=== PATIENT | male | born 1950 | race Caucasian/White ===

== ENCOUNTER 2021-04-27 07:34 | Emergency (ER) | payer MEDICARE, BC ==
[~2021-04-27] VITALS: Ht 177.8 cm; Wt 68.0 kg
[2021-04-27] MEDS ORDERED: CITALOPRAM HBR10 MG PO (07:47)
--- NOTE | 2021-04-28 13:41 | EKG ---
[facility] [address] [facility] [place] [address] Signed Normal sinus rhythm Normal ECG No previous ECGs available Confirmed by JOSE BURTON MD ([id number]) on 04/28/2021 1:41:04 PM Electronically Signed By: JOSE BURTON MD 04/28/21 1341 PATIENT NAME: DMITRY HICKS Electrocardiogram DATE OF : 52 PHYSICIAN: JOSE BURTON MD REPORT #: [id number] REPORT IS CONFIDENTIAL AND NOT TO BE RELEASED WITHOUT AUTHORIZATION
== END 2021-04-27 10:35 | disposition home or self-care (01) ==
LOC: ED 07:34
DX: R55 Syncope and collapse (principal); Z79.899 Other long term (current) drug therapy
CPT/HCPCS: 71045; 80053; 81001; 83735; 84484; 85025; 93005; 93010; 99284-25

== ENCOUNTER 2022-07-03 19:44 | Emergency (ER) | payer MEDICARE, BC ==
[~2022-07-03] VITALS: Ht 177.8 cm; Wt 73.2 kg
[~2022-07-03 19:44] MED LIST: CITALOPRAM HBR10 MG PO
[2022-07-03] MEDS ORDERED: FUROSEMIDE20 MG PO (20:12)
[2022-07-03] MEDS ORDERED: POTASSIUM CHLO10 MEQ PO (20:12)
[2022-07-03] MEDS ORDERED: VITAMIN D350 MCG PO (20:13)
--- NOTE | 2022-07-05 15:58 | EKG ---
[facility] [address] [facility] [place] [address] Signed Sinus tachycardia Otherwise normal ECG When compared with ECG of 27-APR-2021 07:53, Vent. rate has increased BY 34 BPM Confirmed by JOSE BURTON MD ([id number]) on 07/05/2022 3:58:21 PM Electronically Signed By: JOSE BURTON MD 07/05/22 1558 PATIENT NAME: DMITRY HICKS Electrocardiogram DATE OF : 52 PHYSICIAN: JOSE BURTON MD REPORT #: [id number] REPORT IS CONFIDENTIAL AND NOT TO BE RELEASED WITHOUT AUTHORIZATION
== END 2022-07-03 22:41 | disposition home or self-care (01) ==
LOC: ED 19:44
DX: U07.1 COVID-19 (principal); Z79.899 Other long term (current) drug therapy
CPT/HCPCS: 36415; 70450; 71045; 80053; 81003; 83880; 85025; 85060; 87502; 93005; 93010; 99284-25; C9803; J7121; U0003

== ENCOUNTER 2024-11-02 09:05 | Emergency (ER) | payer MEDICARE, BC ==
[~2024-11-02 09:05] MED LIST changes: +FUROSEMIDE20 MG PO; +HALOPERIDOL1 MG PO; +POTASSIUM CHLO10 MEQ PO; +QUETIAPINE FUMA25 MG PO; +VITAMIN D350 MCG PO
[2024-11-02] MEDS ORDERED: SODIUM CHLORIDE 0.9% 1,000 ML IV ONE (09:15)
[2024-11-02 10:35] LABS: BASOPHILS 0.3 % (0-2); EOSINOPHILS 0.6 % (0-6); HEMATOCRIT 38.4 % (35.0-50.0); HEMOGLOBIN 13.1 g/dL (12.0-18.0); LYMPHOCYTES 17.4 % (24-44); MCH 30.2 (27-36); MCHC 34.1 g/dl (30-36); MCV 88.6 fl (81-99); MONOCYTES 8.8 % (0-12); NEUTROPHILS 72.9 % (39-80); PLATELET COUNT 106 K/uL (140-440); RBC 4.33 M/ul (4.3-5.7); RDW 13.5 (10.5-15.0)
[2024-11-02 10:57] LABS: ALBUMIN 3.4 g/dL (3.4-5.0); ANION GAP 9.7 (7-21); BILIRUBIN, TOTAL 0.9 mg/dL (0.2-1.0); BUN/CREATININE RATIO 26.86 (6.0-28.6); CALCIUM 8.5 mg/dL (8.5-10.1); CREATININE, SERUM 0.67 mg/dL (0.70-1.30); POTASSIUM 3.7 mmol/L (3.5-5.1); PROTEIN, TOTAL 6.8 g/dL (6.4-8.2)
[2024-11-02] MEDS ORDERED: LIDOCAINE 2% VISCOUS 6 ML SYR MM ONE (11:30)
[2024-11-02 11:52] LABS: BILIRUBIN, URINE NEGATIVE (negative); BLOOD/HGB, URINE TRACE-I (Negative); KETONE, URINE NEGATIVE (Negative); LEUK ESTERASE, URINE NEGATIVE (negative); NITRITE, URINE NEGATIVE (negative)
[2024-11-02 11:58] LABS: BACTERIA, URINE NONE SEEN /hpf (negative); CASTS, URINE NONE SEEN \\lpf; COLLECTION TYPE, URINE CLEAN CATCH; CRYSTALS, URINE NONE SEEN (0-1+); EPITHELIAL CELLS, URINE 0 /lpf (0-1+)
[2024-11-02 11:59] LABS: REFLEX CULTURE, URINE No (No)
[2024-11-02] MEDS ORDERED: CEPHALEXIN500 M1 PO (12:26)
[2024-11-02] MEDS ORDERED: CEPHALEXIN MONOHYDRATE 500 MG CAP PO ONE (12:30)
[2024-11-02 12:59] VITALS: BP 101/66
[2024-11-02] MEDS ORDERED: CEPHALEXIN MONOHYDRATE 250 MG/5 ML HOME.PACK PO ONE ×2 (13:00)
== END 2024-11-02 12:59 | disposition home or self-care (01) ==
LOC: ED 09:05
PROVIDERS: Emergency Medicine
DX: N39.0 Urinary tract infection, site not specified (principal); Z79.899 Other long term (current) drug therapy
CPT/HCPCS: 36415; 51702; 51798; 80053; 81001; 85025; 93005; 93010; 99283